=== PATIENT | female | born 1980 | race Asian ===

== ENCOUNTER 2019-04-22 07:18 | Inpatient (IN) | payer SELFPAY ==
[~2019-04-22] VITALS: Ht 161 cm; Wt 73.5 kg
[2019-04-22] MEDS ORDERED: LACTATED RINGERS 1,000 ML IV SCH (07:41)
[2019-04-22] MEDS ORDERED: CITRIC ACID/SODIUM CITRATE 30 ML UDC PO SCH (07:45)
--- NOTE | 2019-04-22 08:07 | NUR ---
PATIENT HAS BEEN SCREENED AND CATEGORIZED LOW NUTRITION RISK. PATIENT WILL BE SEEN WITHIN 7 DAYS OF ADMISSION. 04/28/[address]
[2019-04-22 08:49] LABS: BASOPHILS # (AUTO) 0.1 K/uL (0.00-0.22); BASOPHILS % (AUTO) 0.7 % (0.0-2.0); EOSINOPHILS # (AUTO) 0.1 K/uL (0-0.4); EOSINOPHILS % (AUTO) 0.9 % (0.0-4.0); HEMATOCRIT 37.3 % (36-48); HEMOGLOBIN 12.3 g/dL (12.0-16.0); LYMPHOCYTES # (AUTO) 1.2 K/uL (2.5-16.5); LYMPHOCYTES % (AUTO) 13.3 % (20.5-51.1); MEAN CORPUSCULAR HEMOGLOBIN 32 pg (27-31); MEAN CORPUSCULAR HGB CONC 33 g/dL (33-37); MEAN CORPUSCULAR VOLUME 95.7 fL (80-94); MONOCYTES # (AUTO) 0.7 K/uL (0.8-1.0); MONOCYTES % (AUTO) 8.1 % (1.7-9.3); NEUTROPHILS # (AUTO) 6.9 K/uL (1.8-7.7); PLATELET COUNT (AUTO) 166 K/uL (140-450); RED BLOOD CELL COUNT(AUTO) 3.89 MIL/uL (4.20-5.40); RED CELL DISTRIBUTION WIDTH 13.2 % (11.6-13.7)
[2019-04-22 09:14] LABS: APPEARANCE,URINE CLEAR (CLEAR); BILIRUBIN,URINE NEGATIVE (NEGATIVE); BLOOD, URINE 3+ (NEGATIVE); COLOR,URINE YELLOW (YELLOW); LEUKOCYTE ESTERASE ,URINE NEGATIVE (NEGATIVE); NITRITE, URINE NEGATIVE (NEGATIVE); UGLUCOSE NEGATIVE (NEGATIVE)
[2019-04-22 09:32] LABS: RBC,URINE 11-20 (MOD) /HPF (0-5)
[2019-04-22] MEDS ORDERED: CITRIC ACID/SODIUM CITRATE 30 ML UDC ONE (09:52)
[2019-04-22] MEDS ORDERED: BUPIVACAINE MPF 0.25% 10 ML VIAL INJ ONE (09:55)
[2019-04-22] MEDS ORDERED: fentaNYL 0.05 MG/ML VIAL ONE (10:02)
[2019-04-22] MEDS ORDERED: MORPHINE PRES FREE 10 MG/10 ML AMP IV ONE (10:02)
[2019-04-22 10:03] VITALS: BP 102/61
[2019-04-22] MEDS ORDERED: NALOXONE 0.4 MG/ML VIAL IVP PRN ×3 (10:40)
[2019-04-22] MEDS ORDERED: diphenhydrAMINE 50 MG/ML VIAL IVP PRN (10:40)
[2019-04-22] MEDS ORDERED: NALBUPHINE 10 MG/ML AMP IVP PRN (10:40)
[2019-04-22] MEDS ORDERED: KETOROLAC 30 MG/ML VIAL IVP PRN (10:40)
[2019-04-22] MEDS ORDERED: ONDANSETRON 4 MG/2 ML VIAL IVP PRN ×2 (10:40)
[2019-04-22] MEDS ORDERED: OXYTOCIN 20 UNITS/LR PREMIX 1,000 ML IV ONE (12:51)
[2019-04-22] MEDS ORDERED: MEASLES, MUMPS, AND RUBELLA 1 VIAL SQVAC PRN (13:00)
[2019-04-22] MEDS ORDERED: HYDROmorphone 1 MG/ML AMP IVP PRN (13:00)
[2019-04-22] MEDS: OXYTOCIN 20 UNITS in LACTATED RINGERS 1,000 ML IV SCH (18:12)
[2019-04-23] MEDS ORDERED: OXYTOCIN 20 UNITS/LR PREMIX 1,000 ML IV ONE (01:25)
[2019-04-23] MEDS: OXYTOCIN 20 UNITS in LACTATED RINGERS 1,000 ML IV SCH (02:02)
[2019-04-23 08:38] LABS: BASOPHILS # (AUTO) 0.1 K/uL (0.00-0.22); BASOPHILS % (AUTO) 0.5 % (0.0-2.0); EOSINOPHILS # (AUTO) 0.1 K/uL (0-0.4); EOSINOPHILS % (AUTO) 0.5 % (0.0-4.0); HEMOGLOBIN 10.7 g/dL (12.0-16.0); LYMPHOCYTES # (AUTO) 1.1 K/uL (2.5-16.5); LYMPHOCYTES % (AUTO) 9.8 % (20.5-51.1); MEAN CORPUSCULAR HEMOGLOBIN 32 pg (27-31); MEAN CORPUSCULAR HGB CONC 33 g/dL (33-37); MEAN CORPUSCULAR VOLUME 95.2 fL (80-94); MONOCYTES # (AUTO) 0.8 K/uL (0.8-1.0); MONOCYTES % (AUTO) 7.6 % (1.7-9.3); NEUTROPHILS % (AUTO) 81.6 % (42.2-75.2); PLATELET COUNT (AUTO) 134 K/uL (140-450); RED BLOOD CELL COUNT(AUTO) 3.36 MIL/uL (4.20-5.40); RED CELL DISTRIBUTION WIDTH 13.2 % (11.6-13.7)
[2019-04-23] MEDS ORDERED: LACTATED RINGERS 1,000 ML IV SCH (10:30)
[2019-04-23] MEDS: KETOROLAC 30 MG/ML VIAL IVP PRN (11:14)
[2019-04-23] MEDS ORDERED: ACETAMINOPHEN 325 MG TAB PO PRN (22:00)
[2019-04-24] MEDS: KETOROLAC 30 MG/ML VIAL IVP PRN (03:14)
[2019-04-24] MEDS: SIMETHICONE 80 MG TAB.CHEW PO SCH ×2 (08:56→12:53)
[2019-04-24] MEDS ORDERED: DOCUSATE SODIUM 100 MG GELCAP PO SCH (09:00)
[2019-04-24] MEDS ORDERED: BISACODYL 5 MG TABEC PO SCH (09:00)
[2019-04-24] MEDS ORDERED: IBUPROFEN 600 MG TAB PO PRN (09:00)
[2019-04-24] MEDS ORDERED: SODIUM PHOSPHATE 118 ML ENEM RC PRN (09:00)
== END 2019-04-24 17:25 | disposition home or self-care (01) | DRG 788 ==
LOC: MLD 07:18 → MFCC 13:50
PROVIDERS: ADMIT Obstetrics & Gynecology; ATTEND Obstetrics & Gynecology
PROC: 10D00Z1 Extraction of Products of Conception, Low, Open Approach (ICD-10-PCS; principal; 2019-04-22 10:00)
PROC: 3E0234Z Introduction of Serum, Toxoid and Vaccine into Muscle, Percutaneous Approach (ICD-10-PCS; 2019-04-23)
DX: O34.211 Maternal care for low transverse scar from previous cesarean delivery (principal); Z37.0 Single live birth; K66.0 Peritoneal adhesions (postprocedural) (postinfection); Z3A.38 38 weeks gestation of pregnancy; O99.62 Diseases of the digestive system complicating childbirth; Z23 Encounter for immunization
CPT/HCPCS: 36415; 51702; 81001; 85025; 86592; 86886; 86900; 86901; 87081; 87086; 90707; 90715; J0690; J1885; J2270; J2590; J3010; J3490; J7060; J7120